=== PATIENT | male | born 1955 | race Caucasian/White ===

== ENCOUNTER 2019-07-11 04:18 | Inpatient (IN) | payer MEDICARE, MEDICAID ==
[~2019-07-11] VITALS: Ht 177.8 cm; Wt 75.0 kg
--- NOTE | 2019-07-11 04:43 | NUR ---
TASK RN: PT TO ED REPORTS COUGH AND SOB X1 DAY. REPORTS PRODUCTIVE COUGH WITH BROWN MUCUS, ALSO VOMITING AFTER COUGHING. PT DENIES ANY OTHER C/O AT THIS TIME. PT ON 6L NC TO MAINTAIN O2 SAT AT 96%, PT ROOM AIR AT BASELINE. MONITORING APPLIED, CALL LIGHT WITHIN REACH, ALL SAFETY MEASURES IN PLACE. ERP IN ROOM TO EVAL PT. IV PLACED.
--- NOTE | 2019-07-11 04:46 | NUR ---
REPORT TO JUAN F NG.
--- NOTE | 2019-07-11 04:49 | NUR ---
received report from JUAN F Márquez. dental laboratory assistant at bedside for blood draw.
[2019-07-11] MEDS ORDERED: methylPREDNISolone SOD SUCC 125 MG/2 ML ONE (04:50)
--- NOTE | 2019-07-11 04:56 | NUR ---
RT at bedside for breathing treatment.
[2019-07-11] MEDS ORDERED: ALBUTEROL SULFATE 2.5 MG/3 ML NPPB ONE (05:00)
[2019-07-11] MEDS ORDERED: methylPREDNISolone SOD SUCC 125 MG/2 ML IV ONE (05:00)
[2019-07-11 05:03] LABS: MEAN CORPUSCULAR HEMOGLOBIN 29.8 pg (27.5-34.5); MEAN CORPUSCULAR HGB CONC 32.5 g/dL (33.2-36.2); MEAN CORPUSCULAR VOLUME 91.7 fL (81-97); MEAN PLATELET VOLUME 8.7 fL (7.4-10.4); PLATELET COUNT 230 x10^3/uL (130-400)
[2019-07-11 05:16] LABS: ALBUMIN 3.7 g/dL (3.4-5.0); ANION GAP 8 mmol/L (5-15); CALCIUM 8.8 mg/dL (8.5-10.1); CHLORIDE 104 mmol/L (98-107); CREATININE 0.93 mg/dL (0.7-1.3)
[2019-07-11 05:51] LABS: BASOPHILS # (AUTO) 0.01 x10^3/uL (0-0.1); BASOPHILS % (AUTO) 0 % (0-1); EOSINOPHILS # (AUTO) 0.02 x10^3/uL (0-0.4); EOSINOPHILS % (AUTO) 0 % (1-7); LYMPHOCYTES # (AUTO) 1.61 x10^3/uL (1-3.4); LYMPHOCYTES % (AUTO) 10 % (22-44); MD SCAN; MONOCYTES % (AUTO) 7 % (2-9); NEUTROPHILS # (AUTO) 12.76 x10^3/uL (1.8-6.8); NEUTROPHILS % (AUTO) 83 % (42-75)
[2019-07-11] MEDS ORDERED: CEFTRIAXONE PMX 1GM/50ML 50 ML IVPB ONE (06:30)
[2019-07-11] MEDS ORDERED: SODIUM CHLORIDE 0.9% 1,000ML IVBOLUS ONE (06:30)
[2019-07-11] MEDS ORDERED: AZITHROMYCIN 500 MG in SODIUM CHLORIDE 0.9% 250 ML IVPB ONE (06:30)
[2019-07-11] MEDS ORDERED: CEFTRIAXONE PMX 1GM/50ML 50 ML ONE (06:41)
[2019-07-11] MEDS ORDERED: LABETALOL 5MG/ML, 20ML IVPush PRN (08:00)
[2019-07-11] MEDS: CEFTRIAXONE PMX 1GM/50ML 50 ML IV SCH (08:00)
[2019-07-11] MEDS ORDERED: PROMETHAZINE 25 MG/ML, 1ML IM PRN (08:00)
[2019-07-11] MEDS ORDERED: ONDANSETRON 2MG/ML, 2ML IVPush PRN (08:00)
[2019-07-11 08:27] LABS: RAPID INFLUENZA A Negative (Negative); RAPID INFLUENZA B Negative (Negative)
[2019-07-11] MEDS ORDERED: SODIUM CHLORIDE 0.9% 1,000 ML IV SCH (08:30)
[2019-07-11] MEDS ORDERED: HEPARIN 5,000 UNITS/ML, 1ML ONE (08:35)
[2019-07-11] MEDS ORDERED: DOXYCYCLINE 100MG TABLET ONE (08:35)
[2019-07-11] MEDS ORDERED: GUAIFENESIN ER 600 MG TABLET ONE (08:35)
[2019-07-11] MEDS ORDERED: OMNIPAQUE 350 MG/ML, 75ML BOTTLE ONE (08:35)
[2019-07-11] MEDS: SODIUM CHLORIDE 0.9% 1,000 ML IV SCH ×2 (08:56→20:18)
[2019-07-11] MEDS: HEPARIN 5,000 UNITS/ML, 1ML SQ SCH ×2 (09:00→16:38)
[2019-07-11] MEDS: GUAIFENESIN ER 600 MG TABLET PO SCH ×2 (09:00→20:18)
[2019-07-11] MEDS ORDERED: DOXYCYCLINE 100MG TABLET PO SCH (09:00)
--- NOTE | 2019-07-11 09:13 | NUR ---
PT MED NOTED. VSS, NAD NOTED. ALL TESTS COMPLETED. RINED COLLECTED AND SENT TO LAB. MEAL TRAY ORDERED, CALL LIGHT W/I REACH. POC DISCUSSED AND QUETIONS ANSWERED.
[2019-07-11] MEDS: DOXYCYCLINE 100 MG in DEXTROSE 5% 250 ML IV SCH ×2 (10:00→21:37)
--- NOTE | 2019-07-11 10:16 | NUR ---
JANET MCQUEEN FOR DOXYCYLINE 100MG IVPB REC'D. PT REC'D THE PO DOSE ORDERED PRIOR TO THIS ORDER.
--- NOTE | 2019-07-11 10:17 | NUR ---
MEAL TRAY PROVIDED, PT CONSUMED 50%
[2019-07-11] MEDS ORDERED: ALBUTEROL/IPRATROPIUM 2.5MG/0.5MG, 3 ML ONE (11:14)
[2019-07-11] MEDS: ALBUTEROL/IPRATROPIUM 2.5MG/0.5MG, 3 ML HHN SCH ×2 (11:20→15:40)
--- NOTE | 2019-07-11 11:52 | NUR ---
PT MOVED ONTO HOSPITAL BED, ALL ITEMS W/I REACH INCLUDING CALL LIGHT. MEAL TRAY ORDERED. PT VSS, NAD NOTED. RESP SPUTUM SAMPLED COLLECTED AND SENT TO LAB
[2019-07-11 14:46] VITALS: BP 143/85
[2019-07-11] MEDS ORDERED: ALBUTEROL/IPRATROPIUM 2.5MG/0.5MG, 3 ML NPPB SCH (15:00)
[2019-07-11 20:16] VITALS: BP 133/82
[2019-07-11] MEDS: ALBUTEROL HFA 90 MCG/SPRAY INH SCH (20:18)
[2019-07-12] MEDS ORDERED: MELATONIN 3 MG TABLET PO PRN (00:30)
[2019-07-12 00:34] VITALS: BP 140/81
[2019-07-12] MEDS: HEPARIN 5,000 UNITS/ML, 1ML SQ SCH ×3 (00:40→17:25)
[2019-07-12] MEDS: ALBUTEROL HFA 90 MCG/SPRAY INH SCH ×4 (01:00→21:10)
[2019-07-12 04:49] VITALS: BP 164/98
[2019-07-12 05:06] VITALS: BP 163/93
[2019-07-12 05:49] LABS: MEAN CORPUSCULAR HEMOGLOBIN 29.9 pg (27.5-34.5); MEAN CORPUSCULAR HGB CONC 32.7 g/dL (33.2-36.2); MEAN CORPUSCULAR VOLUME 91.3 fL (81-97); MEAN PLATELET VOLUME 9.4 fL (7.4-10.4); PLATELET COUNT 225 x10^3/uL (130-400); RED BLOOD COUNT 5.28 x10^6/uL (4.38-5.82); RED CELL DISTRIBUTION WIDTH 15.2 % (9.4-14.8)
[2019-07-12 06:03] LABS: ANION GAP 4 mmol/L (5-15); CALCIUM 8.9 mg/dL (8.5-10.1); CHLORIDE 107 mmol/L (98-107); CREATININE 0.91 mg/dL (0.7-1.3)
[2019-07-12 07:04] LABS: BASOPHILS # (AUTO) 0.07 x10^3/uL (0-0.1); BASOPHILS % (AUTO) 1 % (0-1); EOSINOPHILS # (AUTO) 0.03 x10^3/uL (0-0.4); EOSINOPHILS % (AUTO) 0 % (1-7); LYMPHOCYTES # (AUTO) 3.03 x10^3/uL (1-3.4); LYMPHOCYTES % (AUTO) 23 % (22-44); MD SCAN; MONOCYTES # (AUTO) 1.88 x10^3/uL (0.2-0.8); MONOCYTES % (AUTO) 15 % (2-9); NEUTROPHILS # (AUTO) 7.96 x10^3/uL (1.8-6.8); NEUTROPHILS % (AUTO) 61 % (42-75)
[2019-07-12] MEDS: CEFTRIAXONE PMX 1GM/50ML 50 ML IV SCH (08:07)
[2019-07-12 08:10] VITALS: BP 153/98
[2019-07-12] MEDS: SODIUM CHLORIDE 0.9% 1,000 ML IV SCH ×2 (09:23→21:10)
[2019-07-12] MEDS: DOXYCYCLINE 100 MG in DEXTROSE 5% 250 ML IV SCH ×2 (09:23→21:09)
[2019-07-12] MEDS: GUAIFENESIN ER 600 MG TABLET PO SCH ×2 (09:24→21:09)
[2019-07-12 13:39] VITALS: BP 162/99
[2019-07-12 19:07] LABS: MICROSCOPIC AUTO
[2019-07-12 19:10] LABS: CULTURE INDICATED? NO
[2019-07-12 20:12] VITALS: BP 169/99
[2019-07-13] MEDS: HEPARIN 5,000 UNITS/ML, 1ML SQ SCH ×3 (01:27→17:24)
[2019-07-13 01:28] VITALS: BP 186/106
[2019-07-13] MEDS: hydrALAzine 20 MG/ML, 1ML IVPush PRN (01:40)
[2019-07-13 02:45] VITALS: BP 155/88
[2019-07-13] MEDS ORDERED: LORazepam 2 MG/ML, 1ML IVPush ONE (03:00)
[2019-07-13] MEDS: ALBUTEROL HFA 90 MCG/SPRAY INH SCH ×4 (05:48→20:30)
[2019-07-13] MEDS: SODIUM CHLORIDE 0.9% 1,000 ML IV SCH ×2 (08:30→20:30)
[2019-07-13] MEDS: CEFTRIAXONE PMX 1GM/50ML 50 ML IV SCH (08:30)
[2019-07-13] MEDS: GUAIFENESIN ER 600 MG TABLET PO SCH ×2 (08:31→20:30)
[2019-07-13 08:33] VITALS: BP 152/91
[2019-07-13] MEDS: ACETAMINOPHEN 325 MG TABLET PO PRN ×2 (08:41→17:24)
[2019-07-13] MEDS: DOXYCYCLINE 100 MG in DEXTROSE 5% 250 ML IV SCH ×2 (10:27→23:22)
[2019-07-13 15:35] VITALS: BP 158/89
[2019-07-13 20:38] VITALS: BP 167/95
[2019-07-14 02:14] VITALS: BP 164/94
[2019-07-14] MEDS: HEPARIN 5,000 UNITS/ML, 1ML SQ SCH ×3 (02:14→16:09)
[2019-07-14] MEDS: SODIUM CHLORIDE 0.9% 1,000 ML IV SCH ×2 (05:15→15:00)
[2019-07-14] MEDS: ALBUTEROL HFA 90 MCG/SPRAY INH SCH ×4 (05:15→20:28)
[2019-07-14] MEDS: GUAIFENESIN ER 600 MG TABLET PO SCH ×2 (08:23→20:28)
[2019-07-14] MEDS: CEFTRIAXONE PMX 1GM/50ML 50 ML IV SCH (08:23)
[2019-07-14] MEDS: DOXYCYCLINE 100 MG in DEXTROSE 5% 250 ML IV SCH ×2 (09:34→22:10)
[2019-07-14 10:53] VITALS: BP 156/87
[2019-07-14 11:00] VITALS: BP 162/93
[2019-07-14] MEDS: ACETAMINOPHEN 325 MG TABLET PO PRN (15:18)
[2019-07-14 15:21] VITALS: BP 159/86
[2019-07-14] MEDS ORDERED: SODIUM CHLORIDE NASAL SPRAY 45ML BOTTLE NAS PRN (16:30)
[2019-07-14 20:47] VITALS: BP 158/88
[2019-07-15] MEDS: HEPARIN 5,000 UNITS/ML, 1ML SQ SCH ×2 (01:07→08:02)
[2019-07-15 01:33] VITALS: BP 164/92
[2019-07-15] MEDS: ALBUTEROL HFA 90 MCG/SPRAY INH SCH (04:57)
[2019-07-15 06:52] LABS: MEAN CORPUSCULAR HEMOGLOBIN 30.3 pg (27.5-34.5); MEAN CORPUSCULAR HGB CONC 33.2 g/dL (33.2-36.2); MEAN CORPUSCULAR VOLUME 91.3 fL (81-97); MEAN PLATELET VOLUME 9.2 fL (7.4-10.4); PLATELET COUNT 300 x10^3/uL (130-400); RED BLOOD COUNT 5.09 x10^6/uL (4.38-5.82); RED CELL DISTRIBUTION WIDTH 14.9 % (9.4-14.8)
[2019-07-15 07:00] LABS: ANION GAP 8 mmol/L (5-15); CHLORIDE 105 mmol/L (98-107)
[2019-07-15] MEDS ORDERED: CEFD300C37 PO (07:19)
[2019-07-15] MEDS ORDERED: DOXY100T PO (07:19)
[2019-07-15] MEDS ORDERED: BENZ100C PO (07:19)
[2019-07-15 07:26] VITALS: BP 156/88
[2019-07-15] MEDS: CEFTRIAXONE PMX 1GM/50ML 50 ML IV SCH (08:01)
[2019-07-15] MEDS: GUAIFENESIN ER 600 MG TABLET PO SCH (08:02)
[2019-07-15 08:11] LABS: BASOPHILS # (AUTO) 0.04 x10^3/uL (0-0.1); BASOPHILS % (AUTO) 0 % (0-1); EOSINOPHILS # (AUTO) 0.04 x10^3/uL (0-0.4); EOSINOPHILS % (AUTO) 0 % (1-7); LYMPHOCYTES % (AUTO) 39 % (22-44); MD SCAN; MONOCYTES # (AUTO) 1.51 x10^3/uL (0.2-0.8); MONOCYTES % (AUTO) 12 % (2-9); NEUTROPHILS # (AUTO) 6.35 x10^3/uL (1.8-6.8); NEUTROPHILS % (AUTO) 49 % (42-75)
[2019-07-15] MEDS: DOXYCYCLINE 100 MG in DEXTROSE 5% 250 ML IV SCH (10:24)
[2019-07-15 12:24] VITALS: BP 177/108
[2019-07-15] MEDS: hydrALAzine 20 MG/ML, 1ML IVPush PRN (12:29)
== END 2019-07-15 13:16 | disposition home health service (06) | DRG 189 ==
LOC: ED 07:03 → EDIP 07:36 → ICU 14:40 → 4EST 07-12 20:01
PROVIDERS: ADMIT Internal Medicine; ATTEND Internal Medicine Infectious Disease
DX: J96.01 Acute respiratory failure with hypoxia (principal); E87.1 Hypo-osmolality and hyponatremia; J20.9 Acute bronchitis, unspecified; E86.1 Hypovolemia; I10 Essential (primary) hypertension; R91.1 Solitary pulmonary nodule; Z85.528 Personal history of other malignant neoplasm of kidney; Z90.5 Acquired absence of kidney
CPT/HCPCS: 36415; 71045; 71260; 80048; 81001; 82040; 82803; 83605; 84145; 85025; 87040; 87070; 87081; 87205; 87400; 87486; 87581; 87633; 87798; 93005; 94640; 96374; G0378; J0456; J0696; J1644; J7060; J7613; Q9967; J0360; J2060; J2930; J7030; J7050